=== PATIENT | female | born 1940 | race Caucasian/White ===

== ENCOUNTER 2016-12-10 17:21 | Observation (INO) | payer MEDICARE, OTHER ==
[~2016-12-10] VITALS: Ht 167.6 cm; Wt 83.5 kg
[2016-12-10] VITALS (7 sets, daily range): BP systolic 119–152; BP diastolic 62–77; PULSE 71–97; RESP 16–20; O2SAT 94–98
--- NOTE | 2016-12-10 17:38 | ED.REPORT ---
HPI-Stroke / CVA Dec 10, 2016 ED Provider: Marin Torres MD The patient is a 76 year old female with a history of hypertension and hyperlipidemia who presents to the ED with stoke-like symptoms that began at 1600 this afternoon. She states that just 2 hours prior to arrival her left arm started feeling like it was "not her own" she states that her left arm feels different that she has not had any actual weakness. She was getting groceries during symptoms onset. Patient states that her arm "does not feel like her own". 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 Last known normal was just prior to 1600 at ~1559. She denies facial droop, slurred speech , difficulty ambulating, dizziness, dysuria, hematuria, nausea, vomiting, fever or chills. Patient currently takes one aspirin per day. She is not on any blood thinners. She has never had a stroke or TIA. She has not fallen or struck her head. Nursing Notes Stated Complaint: POSSIBLE STROKE SYMPTOMS Chief Complaint: Neuro Symptoms/ Deficits Nursing Notes Reviewed: Yes Allergies: Coded Allergies: No Known Allergies (Unverified , 12/10/16) Scheduled Aspirin (Aspirin) 81 Mg Tablet 81 MG PO DAILY (Reported) Cholecalciferol (Vitamin D3) (Vitamin D3) 2,000 Unit Tablet 2,000 UNIT PO DAILY (Reported) Lisinopril (Lisinopril) 20 Mg Tablet 20 MG PO QAM (Reported) Lovastatin (Lovastatin) 20 Mg Tablet 20 MG PO HS (Reported) Lutein/Zeaxanthin (Lutein-Zeaxanthin 25-5 mg Sfgl) 1 Each Capsule 1 EACH PO DAILY (Reported) Multivitamin (Once Daily) 1 Each Tablet 1 EACH PO DAILY (Reported) General Time Seen by Provider: 18:01 Chief Complaint Weakness Arm left Hx Obtained From: Patient Arrived By: Walk-in Time last known well 1559 Sudden in Onset?: Yes Symptom Duration: Since onset Progression Since Onset: Constant Associated with: Denies: Speech problem, Visual disturbance Pertinent Negative: Pt denies other symptoms Recent Healthcare: No recent doctor visit, No recent hospitalization Risk Factors )( TPA Administration/Criteria Stroke Thrombolytic Therapy : TPA Considered: Yes TPA Administered Intravenously: No, exclusion criteria NIH Stroke Scale Level of Consciousness: Alert and responsive (0) Ask Month & Age: Both questions right (0) Open/Close Eyes/Hand Travel Med Surg Rn: Performs both tasks (0) Horizontal EO Movements: None (0) Visual Rothman: No visual loss (0) Facial Palsy: Normal symmetry (0) Right Arm Motor Drift (10s): No drift 10 sec (0) Left Arm Motor Drift (10s): No drift 10 sec (0) Right Leg Motor Drift (5s): No drift 5 sec (0) Left Leg Motor Drift (5s): No drift 5 sec (0) Limb Ataxia FNF/Heel-Moseley: No ataxia (0) Sensation (Arms/Legs/Face): No sensory loss (0) Language Aphasia: No aphasia, normal (0) Dysarthria: No dysarthria, normal (0) Extinction/Inattention: No exctinct/inattent (0) NIHSS Score: 0 Time NIHSS Performed: 18:01 )( CVA Risk Stratification Risk factors reviewed Past Medical History Past Medical History Reports: Hyperlipidemia, Hypertension Past Surgical History Foot surgery Smoking History Unknown if Ever Smoker Social History Other Social History: Good social support, , Local resident Ambulatory Status Independent Review of Systems Constitutional: Denies: Chills, Fever GI: Denies: Nausea, Vomiting Neurologic: Reports: Focal weakness (Left arm), Numbness, Denies: Dizziness, Problem walking, Slurred speech, Unable to speak, Vision change Complete sys rev & neg: except as marked. Female: Denies: Dysuria, Hematuria Physical Exam Initial Vital Signs Vital Signs (First) Date Time Temp Pulse Resp B/P Pulse Ox O2 Delivery O2 Flow Rate FiO2 12/10/16 17:26 36.8 97 16 152/77 98 Room Air Initial VS: Reviewed Extremities: Vascular intact, Neuro intact, No swelling, No tenderness Skin: Warm, Dry, No cyanosis Psychiatric: Mood/affect normal, Behavior normal, Normal thought content General/Constitutional: Awake, Alert, No acute distress Head / Eyes: Atraumatic, Normocephalic, PERRL Neck: Atraumatic, Supple, Full range of motion Respiratory / Chest: Atraumatic, Breath sounds NL, Breath sounds = bilat, No respiratory distress Cardiovascular: Heart rate NL, Regular rhythm, Heart sounds NL, No gallop, No murmurs, No rubs, Peripheral circulation NL, Pulses = bilaterally Neurologic: Oriented X3, Speech NL, No motor deficits, No sensory deficits, CN II - XII intact, Reflexes equal bilat, Memory NL, Gait NL (Normal gait) Cerebellar Dysfunction: Positive: Finger-nose abnl (Slow - no dysmetria), Negative: Heel-moseley abnl No facial droop Strength and sensation intact in all four extremities No prontator drift Strength with elbow flxion (5/5) All four extremities (5/5 strength) Negative Rhomberg Abdomen: Atraumatic, Soft, Non-tender, No distention Interpretation & Diagnostics Lab Results Interpretation Result Diagram: 12/10/16 1806 12/10/16 1806 Test 12/10/16 17:56 12/10/16 18:06 12/10/16 18:07 Urine Color Yellow (YELLOW) Urine Appearance Clear (CLEAR,HAZY) Urine pH 6.0 (5.0-8.0) Urine Specific [place] 1.010 (1.003-1.035) Urine Protein Negativemg/dL (NEG,TRACE) Urine Glucose (UA) Negativemg/dL (NEGATIVE) Urine Ketones Negativemg/dL (NEGATIVE) Urine Occult Blood Trace (NEGATIVE) Urine Nitrite Negative (NEGATIVE) Urine Bilirubin Negative (NEGATIVE) Urine Urobilinogen Normalmg/dL (NORMAL) Urine Leukocyte Esterase Trace (NEGATIVE) Urine RBC 3-10/hpf (0-2) Urine WBC 0-5/hpf (0-5) Urine Epithelial Cells Moderate/hpf (NONE-MOD) Urine Crystals None seen (NONE SEEN) Urine Bacteria Few/hpf (NONE-FEW) Urine Hyaline Casts None/lpf (NONE) Urine Granular Casts None seen (NONE SEEN) Urine Waxy Casts None seen (NONE SEEN) Urine Red Blood Cell Casts None seen (NONE SEEN) Urine White Blood Cell Casts None seen (NONE SEEN) Urine Mucus None seen (None Seen) Urine Trichomonas None seen (NONE SEEN) Urine Yeast None (NONE SEEN) Urinalysis Comment None Urine Culture Reflexed Indicated White Blood Count 8.0th/mm3 (3.8-10.1) Red Blood Count 3.87mil/mm3 (3.90-5.20) Hemoglobin 12.3g/dL (12.0-15.6) Hematocrit 35.5% (35.0-46.0) Mean Corpuscular Volume 91.7fL (81-100) Mean Corpuscular Hemoglobin 31.8pg (27.0-35.0) Mean Corpuscular Hemoglobin Concent 34.6% (32.0-37.0) Red Cell Distribution Width 13.7% (12.3-15.4) Platelet Count 62bil/L (150-400) Neutrophils (%) (Auto) 62.1% (40-74) Lymphocytes (%) (Auto) 27.7% (14-46) Monocytes (%) (Auto) 8.0% (4-12) Eosinophils (%) (Auto) 1.5% (0-5) Basophils (%) (Auto) 0.4% (0-3) Prothrombin Time 10.0sec (8.1-12.5) Prothromb Time International Ratio 0.94ratio Activated Partial Thromboplast Time 28.9sec (22.8-33.0) Sodium Level 138mEq/L (134-144) Potassium Level 3.6mEq/L (3.5-5.2) Chloride Level 101mEq/L (97-108) Carbon Dioxide Level 21mmol/L (18-29) Blood Urea Nitrogen 27mg/dL (8-27) Creatinine 0.95mg/dL (0.57-1.00) Estimat Glomerular Filtration Rate 81mL/min (>59) Glucose Level 107mg/dL (60-99) Calcium Level 9.2mg/dL (8.5-10.1) Total Bilirubin 0.8mg/dL (0.0-1.2) Aspartate Amino Transf (AST/SGOT) 36U/L (0-50) Alanine Aminotransferase (ALT/SGPT) 25U/L (0-32) Alkaline Phosphatase 69U/L (25-165) Troponin T < 0.010ug/L (0.0-0.011) Total Protein 7.6g/dL (6.4-8.4) Albumin 4.1g/dL (3.4-5.0) Triglycerides Level 214mg/dL (0-149) Cholesterol Level 208mg/dL (100-199) LDL Cholesterol, Calculated 117.200mg/dL (0-99) VLDL Cholesterol 42.800mg/dL HDL Cholesterol 48mg/dL (>39) Cholesterol/HDL Ratio 4.33 (0.0-4.4) Thyroid Stimulating Hormone (TSH) 4.000uIU/mL (0.450-4.500) Hold Martínez Top Tube Received (Received) ECG Interpretation ECG Interpretation: Normal sinus rhythm Rate 73 bpm Nonspecific intraventricular conduction delay No ST segment elevation No acute T wave abnormalities No prior for comparison Time: 18:57 Interpreted by: ED physician CT Head Interpretation IMPRESSION: 1. No acute intracranial findings. 2. Extensive findings likely associated with chronic microvascular ischemic changes. This study fulfills neurological imaging criteria for inclusion or exclusion of acute stroke therapies based on available published neurological guidelines. Dictated by: Inge Escobar M.D. on 12/10/2016 at 17:51 Study: Head CT no contrast Interpretation / Wet Read by: Interpret - Radiologist Re-Eval/Medical Decision Med Decision/Clinical Course The patient is a 76 year old female with a history of hypertension and hyperlipidemia who presents to the ED with stoke-like symptoms that began at 1600 this afternoon. She states that just 2 hours prior to arrival her left arm started feeling like it was "not her own" she states that her left arm feels different that she has not had any actual weakness. Here in the emergency department the patient is afebrile with stable vital signs and examination as above. Of note she has absolutely no objective neurologic deficits or lateralizing neurologic findings. She has no pronator drift. She has no sensory deficits. She has no motor deficits. Gait is normal , Romberg testing is normal, heel to moseley and finger to nose testing is normal. She continues ongoing sensation of "left arm not being her own" however there are absolutely no objective findings of neurologic deficit. I had a discussion about the risks and benefits of TPA with the patient and we do not feel that administration of TPA is warranted given her extremely mild presentation. Head CT IMPRESSION: 1. No acute intracranial findings. 2. Extensive findings likely associated with chronic microvascular ischemic changes. This study fulfills neurological imaging criteria for inclusion or exclusion of acute stroke therapies based on available published neurological guidelines. EKG Normal sinus rhythm Rate 73 bpm Nonspecific intraventricular conduction delay No ST segment elevation No acute T wave abnormalities No prior for comparison LABS Plt Ct - 62; CBC otherwise unremarkable CMP unremarkable Coag normal UA unconvincing for UTI At this time, presentation unconvincing for acute ischemic stroke though this remains a possibility. No evidence of intracranial hemorrhage. Patient is afebrile without any meningismus and no findings suggestive of acute bacterial or viral meningitis. Patient underwent serial neurologic assessments which demonstrated no evolving neurologic deficits. Patient is noted to be quite orthostatic.This likely requires further workup. Patient will be admitted to the hospitalist service for further stroke/TIA workup as well as investigation of her thrombocytopenia. Patient was admitted in stable condition. Discussed with admitting hospitalist accepted for further management. Re-Evaluation/Progress : Time of Eval: 18:20 Patient Status: Condition improved Re-Evaluation/Progress Note: Patient condition is re-evaluated. She is informed of her current and pending results. All questions about the intended treatment plan are addressed. Patient understands and agrees with the plan to admit. Consultation : Referral / Consult Name: Jovani Alexander MD Call Returned at: 19:13 Internal Audit Consultant: Will see patient, Agrees with eval, Agrees with plan, Accepts admit Note: Discussed pt condition. Will admit. Counseled Regarding: Diagnosis, Lab results, Need for admission Patient Discharge & Departure Impression: Primary Impression: TIA (transient ischemic attack) Transient cerebral ischemia type: unspecified Qualified Code: G45.9 - Transient cerebral ischemic attack, unspecified Additional Impressions: Thrombocytopenia Left upper extremity numbness Disposition: ADMITTED TO HOSPITAL Discharge Condition All VS Reviewed: Yes Condition: Improved Referrals: Kyung Carlos MD Scribe Attestation Portions of this note were transcribed by Sheila Cage. I, Dr. Torres, personally performed the history, physical exam and medical decision-making; I reviewed and confirmed the accuracy of the information in the transcribed note. Signed by: Sheila Cage, 12/10/16. Marin Torres MD Dec 10, 2016 17:38 SHEILA CAGE Dec 10, 2016 18:11
--- NOTE | 2016-12-10 17:55 | DRSVH ---
PROCEDURE: CT BRAIN TPA INDICATIONS: Stroke TECHNIQUE: Noncontrast 4.5 mm thick angled axial sections acquired from the foramen magnum to the vertex, with c oronal reformats. COMPARISON: None. FINDINGS: Image quality: Excellent. CSF spaces: Basal cisterns are patent. No extra-axial fluid collections. The ventricles are symmet keeley in size and shape. Brain: No intracranial bleeds or masses. There is marked cerebral volume loss for age, with resulta nt ventricular and sulcal prominence. There are extensive periventricular and deep white matter synchronizer edgard small vessel ischemic changes. There is intracranial internal carotid artery atherosclerosis. Skull and face: Calvarium and visualized facial bones appear intact, without suspicious lesions. Sinuses: Visualized sinuses and mastoids are clear. IMPRESSION: 1. No acute intracranial findings. 2. Extensive findings likely associated with chronic microvascular ischemic changes. This study fulfills neurological imaging criteria for inclusion or exclusion of acute stroke therapie s based on available published neurological guidelines. Dictated by: Inge Escobar M.D. on 12/10/2016 at 17:51 Approved by: Inge Escobar M.D. on 12/10/2016 at 17:54
[2016-12-10 18:11] LABS: Mean Corpuscular Volume 91.7 fL (81-100)
[2016-12-10 18:15] LABS: BASOPHILS % (AUTO) 0.4 % (0-3); EOSINOPHILS % (AUTO) 1.5 % (0-5); Mean Corpuscular Hemoglobin 31.8 pg (27.0-35.0); NEUTROPHILS % (AUTO) 62.1 % (40-74); Platelet Count 62 bil/L (150-400)
[2016-12-10 18:19] LABS: APPEARANCE,URINE CLEAR (CLEAR,HAZY); COLOR,URINE YELLOW (YELLOW); OCCULT BLOOD,URINE TRACE (NEGATIVE); UROBILINOGEN,URINE NORMAL (NORMAL)
[2016-12-10] MEDS ORDERED: Alum-Mag Hydrox-Simeth 30 mL Suspension PO PRN ×2 (18:25→19:35)
[2016-12-10] MEDS ORDERED: Ondansetron 2 mg/mL 2 mL Inj IVPUSH PRN ×2 (18:25→19:35)
[2016-12-10 18:28] LABS: INR 0.94 ratio
[2016-12-10 18:37] LABS: TROPONIN T < 0.010 ug/L (0.0-0.011)
[2016-12-10] MEDS ORDERED: Labetalol 5 mg/mL 20 mL Inj IVPUSH PRN (19:35)
[2016-12-10] MEDS ORDERED: hydrALAZINE 20 mg/mL Inj IVPUSH PRN (19:35)
[2016-12-10] MEDS ORDERED: Polyethylene Glycol (PEG) 17 Gm Powder PO PRN (19:35)
[2016-12-10] MEDS ORDERED: CHOL200025 PO (19:49)
[2016-12-10] MEDS ORDERED: ASPI-973 PO (19:49)
[2016-12-10] MEDS ORDERED: LOVA20TA PO (19:49)
[2016-12-10] MEDS ORDERED: MULT-666 PO (19:49)
[2016-12-10] MEDS ORDERED: LISI-567 PO (19:49)
[2016-12-10] MEDS ORDERED: LUTE1CAP4 PO (19:50)
--- NOTE | 2016-12-10 20:30 | NUR ---
Admit Note Pt. arrived on floor at 2014. Pt. alert and oriented x3. Pt's peripheral IV intact and patent. Family in room. Oriented to room. Will continue to monitor.
--- NOTE | 2016-12-10 20:45 | NUR ---
Off floor to MRI Off floor to MRI at 2030. Transported via tech via wheelchair. Addendum: 12/10/16 at 2213 by ALLISON AVALOS RN The time the pt. left the floor was 2129 not 2029.
--- NOTE | 2016-12-10 21:58 | PCM.HPMED ---
Subjective Date of Service Dec 10, 2016 Primary Provider: Admitting Physician: Jovani Alexander MD Primary Care Physician: Kathrine Raman Attending Physician: Jovani Alexander MD Admit Status: From the Emergency Department Chief Complaint: Left arm weakness/numbness History of Present Illness: Ms. Guillaume is a 76-year-old female with past medical history of hypertension and hyperlipidemia who presented to the ED from home with strokelike symptoms onset 1600 hrs. today. Patient states that she was getting out of her vehicle today when she felt a left shoulder left arm weakness/numbness with a "out of body" feeling. She states as if she was not in control of her arm while able to control her movements. She does not state any other symptoms such as facial numbness, slurred speech, lower extremity numbness or tingling. She states 10 days prior she had a similar episode while walking her dog when she felt as if her left arm was not in her control. Admittedly she has a difficult time describing these feelings "like somebody is touching my face when I am touching my face as if my hand belongs to someone else". She states 5 years prior she underwent a right ankle surgery which she believes has caused her musculoskeletal dysfunction and believes her current symptoms may be due to a pinched nerve in her neck. During interview patient is asymptomatic and denies headache, visual disturbances, nausea vomiting, chest pain, shortness breath, abdominal pain, numbness tingling in extremities or weakness in the extremity. In the ED brain CT showed no acute intracranial findings, extensive findings likely associated with chronic microvascular ischemic changes. Patient admitted for TIA versus stroke rule out Review of Systems: A comprehensive review of systems was conducted with the patient and found to be negative except as above in the history of present illness. Allergies Coded Allergies: No Known Allergies (Unverified , 12/10/16) Home Medications Need to be consolidated in the morning PMH Hypertension Hyperlipidemia Surgical History Right ankle surgery 2011 Family History Grandfather: Stroke Father: Heart attack Mother: Hypothyroid Grandmother: Hypothyroid Social History Hx Alcohol Use: No Hx Substance Use: No Hx Tobacco Use: No Living Arrangement: with Family Exam Vital Signs Vital Sign - Last Date Time Temp Pulse Resp B/P Pulse Ox O2 Delivery O2 Flow Rate FiO2 12/10/16 20:18 74 20 139/66 96 Room Air 12/10/16 17:26 36.8 Exam General: Awake alert lying in hospital bed in no acute distress, well-developed , well-nourished, appropriately interactive HEENT: Normocephalic, atraumatic. External ears without defect. Pupils equal, round, and reactive to light and accommodation. Anicteric sclerae, moist conjunctivae, and no lid lag. Oropharynx free of erythema and cobble stoning with moist mucosa. Neck: Supple with full range of motion. No jugular venous distension. No bruits. No lymphadenopathy or thyromegaly. Cardiovascular: Regular rate and rhythm with no murmurs, rubs, or gallops appreciated Pulmonary: Clear to auscultation bilaterally with no crackles, wheezes, or rhonchi. Normal respiratory effort with no use of accessory muscles. Abdomen: Bowel tones present. Soft, nontender, nondistended. Extremities: No clubbing, cyanosis, bilateral lower extremity edema Skin: Normal temperature, turgor, and texture; no rash Neurological: Cranial nerves grossly intact. Normal muscle strength, tone, and bulk. Reflexes, coordination, and sensory function within normal limits. No known gait impairment. Psychiatric: Normal mood and affect. Alert and oriented to person, place, and time. Lab and Diagnostics Result Diagram: 12/10/16180512/10/161805 X-Rays, CTs and MRIs . CT BRAIN TPA IMPRESSION: 1. No acute intracranial findings. 2. Extensive findings likely associated with chronic microvascular ischemic changes. This study fulfills neurological imaging criteria for inclusion or exclusion of acute stroke therapies based on available published neurological guidelines. Dictated by: Inge Escobar M.D. on 12/10/2016 12-lead ECG EKG showed sinus rhythm, LVH with IVCD, LAD and secondary repolarization abnormalities Additional Diagnostics: Level of Consciousness: Alert and responsive (0) Ask Month & Age: Both questions right (0) Open/Close Eyes/Hand Communication Lecturer: Performs both tasks (0) Horizontal EO Movements: None (0) Visual Rothman: No visual loss (0) Facial Palsy: Normal symmetry (0) Right Arm Motor Drift (10s): No drift 10 sec (0) Left Arm Motor Drift (10s): No drift 10 sec (0) Right Leg Motor Drift (5s): No drift 5 sec (0) Left Leg Motor Drift (5s): No drift 5 sec (0) Limb Ataxia FNF/Heel-Moseley: No ataxia (0) Sensation (Arms/Legs/Face): No sensory loss (0) Language Aphasia: No aphasia, normal (0) Dysarthria: No dysarthria, normal (0) Extinction/Inattention: No exctinct/inattent (0) NIHSS Score: 0 Assessment & Plan Ms. Guillaume is a 76-year-old female with past medical history of hypertension and hyperlipidemia, admitted for CVA/TIA rule out Possible transient ischemic attack. Not present on admission. Under evaluation ABCD score for TIA gives Pt a 3.1% risk for CVA in next 90 days Lipid panel shows mixed hyperlipidemia CT as above MR stroke protocol ordered and pending Echo ordered and pending Telemetry Continue to monitor Hyperlipidemia. POA. Ongoing Continue home lovastatin Hypertension. POA. Ongoing Continue home lisinopril Patient status: Patient admitted under observational status GI Prophylaxis: H2 annie VTE Prophylaxis: Sub-Q Heparin (Unfractionated) Resuscitation Status: CPR: Attempt Resuscitation Attending Statement The patient was seen and examined together with Dr. Barron on 12/10 and I agree with the history, exam and plan as outlined in the note above. NANETTE BARRON DO Dec 10, 2016 21:58 Jovani Alexander MD Dec 10, 2016 23:29
--- NOTE | 2016-12-10 22:56 | NUR ---
Back on floor from MRI Back on [facility] floor from MRI now.
[2016-12-11 04:55] VITALS: BP 116/68; PULSE 66; RESP 16; O2SAT 97
[2016-12-11 07:14] LABS: BASOPHILS % (AUTO) 0.2 % (0-3); EOSINOPHILS % (AUTO) 2.3 % (0-5); MONOCYTES % (AUTO) 10.8 % (4-12); Mean Corpuscular Hemoglobin 31.6 pg (27.0-35.0); Mean Corpuscular Volume 92.4 fL (81-100); NEUTROPHILS % (AUTO) 45.9 % (40-74); Platelet Count 51 bil/L (150-400)
[2016-12-11] MEDS ORDERED: Heparin 5,000 Unit/mL Inj SUBQ SCH (08:30)
--- NOTE | 2016-12-11 09:28 | NUR ---
Evaluation completed. Please go to "Notes" then click on "Assessments and Notes" (bottom left corner of screen). Then select appropriate discipline tab on top of screen.
[2016-12-11 09:50] VITALS: BP 130/75; PULSE 79; RESP 20; O2SAT 97
[2016-12-11 09:54] VITALS: PULSE 71
--- NOTE | 2016-12-11 11:29 | NUR ---
Case Management: RICARDO and Medicare Part D delivered and explained to patient. Signed original placed in chart. Copy left at bedside. Erma Hamilton RN
--- NOTE | 2016-12-11 11:49 | DRSVH ---
PROCEDURE: MRI STROKE PROTOCOL ([id number]) Pre- and post-contrast brain MRI, non-contrast brain MR angiogram, pre- and postcontrast neck MR ibeth ogram INDICATIONS: TIA TECHNIQUE: Brain: Noncontrast axial T1 spin echo, axial T2 fast spin echo, sagittal and axial FLAIR, coronal T2 fast spin echo, axial gradient echo, axial diffusion and ADC through the brain. After the administr ation of contrast, axial 3D VIBE of the cranial vasculature and brain. Brain MRA: Non-contrast 3-D time of flight MR angiogram, with multiple yvdpvbd-sdjgoewmj-ljdiltfwph (MIP) reformats performed. Neck MRA: Axial and sagittal TruFISP through the neck. Coronal dynamic MR angiogram during administ ration of contrast in the arterial and venous phases, with 3-dimenstional ctxanyc-letaxyeiw-spzvacvwl n (MIP) reformats constructed from subtraction images. COMPARISON: [facility], CT, CT BRAIN TPA, 12/10/2016, 17:45. FINDINGS: Image quality: Excellent. BRAIN: The ventricular system and cortical sulci demonstrate atrophy, consistent for the patient's stated ag e. There are areas of increased T2/FLAIR signal intensity within the periventricular and subcortical white matter. There is no acute intra-or extra axial fluid collection. No acute hemorrhage, mass les ion or midline shift. Brainstem is unremarkable. Restricted diffusion is present in the posterior right frontal lobe. In addition, a punctate focus of restricted diffusion is present in the right occipital lobe. T2/FLAIR signal intensity. In addition, there is a very faint area of increased signal on diffusion sequence in the anterior left frontal lo be. There is an equivocal appearance of hypointensity on ADC and hyperintense signal on T2/FLAIR sequ ences. In addition, post contrast enhancement is present. Globes are symmetrical. Sinuses are aerated. Osseous structures are intact. BRAIN MR ANGIOGRAM: The posterior circulation demonstrates a left vertebral artery dominance. Basilar artery and posterio r cerebral arteries demonstrate no areas of hemodynamically significant stenosis, vascular occlusion or aneurysmal dilation. Posterior communicating arteries are within normal limits. 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 The anterior circulation, including the anterior and middle cerebral arteries, as well as internal ca rotid arteries demonstrates no areas of hemodynamically significant stenosis, vascular occlusion or a neurysmal dilation. NECK MR ANGIOGRAM: The origins of the left and right common, internal and external carotid arteries demonstrate no areas of hemodynamically significant stenosis, vascular occlusion or aneurysmal dilation. Origin of the ri ght vertebral artery is obscured secondary to motion. The origin of the left vertebral artery demonst rates no areas of hemodynamically significant stenosis, vascular occlusion or aneurysmal dilation. Ao rtic arch demonstrates conventional anatomy. Limited, visualized portions subclavian vasculature are unremarkable. IMPRESSION: 1. Restricted diffusion with relative signal on ADC, T2 and FLAIR sequence is consistent with acute/s ubacute ischemia in the right frontal and right occipital lobes. No superimposed hemorrhage. 2. Faint area of focal true restricted diffusion and contrast enhancement within the left frontal lob e as above. Overall appearance is most suggestive of late subacute ischemia. 3. Mild to moderate atrophy and chronic microvascular ischemic changes. 4. No areas of hemodynamically significant stenosis, vascular occlusion or aneurysmal dilation within the anterior circulation. 5. No areas of hemodynamically significant stenosis, vascular occlusion or aneurysmal dilation within the posterior circulation. 6. No areas of hemodynamically significant stenosis, vascular occlusion or aneurysmal dilation within the neck vasculature. Origin of the right vertebral artery is unable to be assessed for stenosis sec ondary to motion. The estimate of stenosis included in the report of the imaging study was calculated using the NASCET method Dictated by: Taisha England M.D. on 12/11/2016 at 9:14 Approved by: Taisha England M.D. on 12/11/2016 at 11:47
--- NOTE | 2016-12-11 12:54 | NUR ---
Social Work: Initial Assessment/Readiness for D/C/Multidisciplinary Rounds D: EMR reviewed. Please see Initial Assessment linked to this note for more information. Pt is a 76 year old female admitted [facility] for TIA per H&P. Pt's insurance is Medicare and [email or web address]. PCP is Kathrine Raman MD. Pt discussed in multidisciplinary rounds, ST, PT, OT to evaluate pt. ST has seen pt, recommending regular solids. Pt is likely to discharge home, no needs. No SW orders received. SW met with pt at bedside to conduct initial assessment. Pt was alert and oriented x3. SW explained role and wrote phone number on white board. SW provided [facility] Discharge Planning Checklist and encouraged pt to contact SW for any discharge planning questions. Pt lives at home with her spouse on [address]. Pt is independent with all ADLs at baseline. Pt uses no DME at baseline, but has a walker available for use at discharge. Pt drives. Pt has no HH or SNF history. Pt has no LTC or VA benefits. Pt has no DPOA on file, SW requested copy of pt's DPOA. Pt agreeable. Pt helps her sister in [place] on Sundays but is not a primary caregiver. Pt's daughter lives in a guest house near pt's home and is able to assist as needed. Pt's is independent at baseline and was later seen independently ambulating down alonso to visit pt at bedside. Pt is likely to d/c home with to transport via POV. SW will continue to follow. A: Pt who is independent at baseline and has the capacity for self-care. P: Pt anticipated to discharge home with to transport via POV. No SW needs identified, no MD orders received at this time. PT and OT to evaluate pt. SW will continue to follow for needs until time of discharge. DAVID Jo Addendum: 12/11/16 at 1256 by MIGUELITO POWELL Amended: Links added.
--- NOTE | 2016-12-11 13:13 | PCM.PNMED ---
Subjective Date of Service Dec 11, 2016 Subjective The patient does note still some clumsiness of her left arm and difficulty coordinating it with the right. Exam Vital Signs Vital Sign - Last Date Time Temp Pulse Resp B/P Pulse Ox O2 Delivery O2 Flow Rate FiO2 12/11/16 09:54 71 12/11/16 09:50 36.4 20 130/75 97 Room Air Intake and Output 12/10/16 12/10/16 12/11/16 Cumulative From/Thru 15:00 23:00 07:00 12/10/16 17:26 - 12/11/16 05:48 Intake Total 1250 ml 1250 ml Output Total 950 ml 950 ml Balance 300 ml 300 ml Intake Oral 1250 ml 1250 ml Output Urine Total 950 ml 950 ml # Bowel Movements 0 0 Exam Constitutional: Elderly female in no acute distress Head: Normocephalic atraumatic Chest: Clear to auscultation Cor: Regular rate and rhythm S1-S2 without murmur Abdomen: Soft nontender bowel sounds present Extremities: No pedal edema Neuro: Alert and oriented 3 motor strength is intact bilaterally IVs and Medications Medications Reviewed: Medications were reviewed in detail Lab and Diagnostics Laboratory Tests 72 Hours Test 12/10/16 17:56 12/10/16 18:06 12/10/16 18:07 12/11/16 06:00 Urine Color Yellow (YELLOW) Urine Appearance Clear (CLEAR,HAZY) Urine pH 6.0 (5.0-8.0) Urine Specific [place] 1.010 (1.003-1.035) Urine Protein Negativemg/dL (NEG,TRACE) Urine Glucose (UA) Negativemg/dL (NEGATIVE) Urine Ketones Negativemg/dL (NEGATIVE) Urine Occult Blood Trace (NEGATIVE) Urine Nitrite Negative (NEGATIVE) Urine Bilirubin Negative (NEGATIVE) Urine Urobilinogen Normalmg/dL (NORMAL) Urine Leukocyte Esterase Trace (NEGATIVE) Urine RBC 3-10/hpf (0-2) Urine WBC 0-5/hpf (0-5) Urine Epithelial Cells Moderate/hpf (NONE-MOD) Urine Crystals None seen (NONE SEEN) Urine Bacteria Few/hpf (NONE-FEW) Urine Hyaline Casts None/lpf (NONE) Urine Granular Casts None seen (NONE SEEN) Urine Waxy Casts None seen (NONE SEEN) Urine Red Blood Cell Casts None seen (NONE SEEN) Urine White Blood Cell Casts None seen (NONE SEEN) Urine Mucus None seen (None Seen) Urine Trichomonas None seen (NONE SEEN) Urine Yeast None (NONE SEEN) Urinalysis Comment None Urine Culture Reflexed Indicated White Blood Count 8.0th/mm3 (3.8-10.1) 5.7th/mm3 (3.8-10.1) Red Blood Count 3.87mil/mm3 (3.90-5.20) 3.29mil/mm3 (3.90-5.20) Hemoglobin 12.3g/dL (12.0-15.6) 10.4g/dL (12.0-15.6) Hematocrit 35.5% (35.0-46.0) 30.4% (35.0-46.0) Mean Corpuscular Volume 91.7fL (81-100) 92.4fL (81-100) Mean Corpuscular Hemoglobin 31.8pg (27.0-35.0) 31.6pg (27.0-35.0) Mean Corpuscular Hemoglobin Concent 34.6% (32.0-37.0) 34.2% (32.0-37.0) Red Cell Distribution Width 13.7% (12.3-15.4) 13.7% (12.3-15.4) Platelet Count 62bil/L (150-400) 51bil/L (150-400) Neutrophils (%) (Auto) 62.1% (40-74) 45.9% (40-74) Lymphocytes (%) (Auto) 27.7% (14-46) 40.6% (14-46) Monocytes (%) (Auto) 8.0% (4-12) 10.8% (4-12) Eosinophils (%) (Auto) 1.5% (0-5) 2.3% (0-5) Basophils (%) (Auto) 0.4% (0-3) 0.2% (0-3) Prothrombin Time 10.0sec (8.1-12.5) Prothromb Time International Ratio 0.94ratio Activated Partial Thromboplast Time 28.9sec (22.8-33.0) Sodium Level 138mEq/L (134-144) 141mEq/L (134-144) Potassium Level 3.6mEq/L (3.5-5.2) 3.4mEq/L (3.5-5.2) Chloride Level 101mEq/L (97-108) 105mEq/L (97-108) Carbon Dioxide Level 21mmol/L (18-29) 22mmol/L (18-29) Blood Urea Nitrogen 27mg/dL (8-27) 20mg/dL (8-27) Creatinine 0.95mg/dL (0.57-1.00) 0.76mg/dL (0.57-1.00) Estimat Glomerular Filtration Rate 81mL/min (>59) 105mL/min (>59) Glucose Level 107mg/dL (60-99) 94mg/dL (60-99) Hemoglobin A1c 5.5% (4.8-5.6) Calcium Level 9.2mg/dL (8.5-10.1) 8.4mg/dL (8.5-10.1) Total Bilirubin 0.8mg/dL (0.0-1.2) 0.7mg/dL (0.0-1.2) Aspartate Amino Transf (AST/SGOT) 36U/L (0-50) 25U/L (0-50) Alanine Aminotransferase (ALT/SGPT) 25U/L (0-32) 18U/L (0-32) Alkaline Phosphatase 69U/L (25-165) 57U/L (25-165) Troponin T < 0.010ug/L (0.0-0.011) Total Protein 7.6g/dL (6.4-8.4) 6.1g/dL (6.4-8.4) Albumin 4.1g/dL (3.4-5.0) 3.4g/dL (3.4-5.0) Triglycerides Level 214mg/dL (0-149) Cholesterol Level 208mg/dL (100-199) LDL Cholesterol, Calculated 117.200mg/dL (0-99) VLDL Cholesterol 42.800mg/dL HDL Cholesterol 48mg/dL (>39) Cholesterol/HDL Ratio 4.33 (0.0-4.4) Thyroid Stimulating Hormone (TSH) 4.000uIU/mL (0.450-4.500) Hold Martínez Top Tube Received (Received) Result Diagram: 12/11/16 0600 12/11/16 0600 X-Rays, CTs and MRIs . CT BRAIN TPA IMPRESSION: 1. No acute intracranial findings. 2. Extensive findings likely associated with chronic microvascular ischemic changes. This study fulfills neurological imaging criteria for inclusion or exclusion of acute stroke therapies based on available published neurological guidelines. Dictated by: Inge Escobar M.D. on 12/10/2016 PROCEDURE: MRI STROKE PROTOCOL ([id number]) Pre- and post-contrast brain MRI, non-contrast brain MR angiogram, pre- and postcontrast neck MR angiogram INDICATIONS: TIA TECHNIQUE: Brain: Noncontrast axial T1 spin echo, axial T2 fast spin echo, sagittal and axial FLAIR, coronal T2 fast spin echo, axial gradient echo, axial diffusion and ADC through the brain. After the administration of contrast, axial 3D VIBE of the cranial vasculature and brain. Brain MRA: Non-contrast 3-D time of flight MR angiogram, with multiple maximum- intensity-projection (MIP) reformats performed. Neck MRA: Axial and sagittal TruFISP through the neck. Coronal dynamic MR angiogram during administration of contrast in the arterial and venous phases, with 3-dimenstional iynbnzu-mloxougjx-nogdkqlhyk (MIP) reformats constructed from subtraction images. COMPARISON: [facility], CT, CT BRAIN TPA, 12/10/2016, 17:45. FINDINGS: Image quality: Excellent. BRAIN: The ventricular system and cortical sulci demonstrate atrophy, consistent for the patient's stated age. There are areas of increased T2/FLAIR signal intensity within the periventricular and subcortical white matter. There is no acute intra-or extra axial fluid collection. No acute hemorrhage, mass lesion or midline shift. Brainstem is unremarkable. Restricted diffusion is present in the posterior right frontal lobe. In addition , a punctate focus of restricted diffusion is present in the right occipital lobe. T2/FLAIR signal intensity. In addition, there is a very faint area of increased signal on diffusion sequence in the anterior left frontal lobe. There is an equivocal appearance of hypointensity on ADC and hyperintense signal on T2 /FLAIR sequences. In addition, post contrast enhancement is present. Globes are symmetrical. Sinuses are aerated. Osseous structures are intact. BRAIN MR ANGIOGRAM: The posterior circulation demonstrates a left vertebral artery dominance. Basilar artery and posterior cerebral arteries demonstrate no areas of hemodynamically significant stenosis, vascular occlusion or aneurysmal dilation. Posterior communicating arteries are within normal limits. 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 The anterior circulation, including the anterior and middle cerebral arteries, as well as internal carotid arteries demonstrates no areas of hemodynamically significant stenosis, vascular occlusion or aneurysmal dilation. NECK MR ANGIOGRAM: The origins of the left and right common, internal and external carotid arteries demonstrate no areas of hemodynamically significant stenosis, vascular occlusion or aneurysmal dilation. Origin of the right vertebral artery is obscured secondary to motion. The origin of the left vertebral artery demonstrates no areas of hemodynamically significant stenosis, vascular occlusion or aneurysmal dilation. Aortic arch demonstrates conventional anatomy. Limited, visualized portions subclavian vasculature are unremarkable. IMPRESSION: 1. Restricted diffusion with relative signal on ADC, T2 and FLAIR sequence is consistent with acute/subacute ischemia in the right frontal and right occipital lobes. No superimposed hemorrhage. 2. Faint area of focal true restricted diffusion and contrast enhancement within the left frontal lobe as above. Overall appearance is most suggestive of late subacute ischemia. 3. Mild to moderate atrophy and chronic microvascular ischemic changes. 4. No areas of hemodynamically significant stenosis, vascular occlusion or aneurysmal dilation within the anterior circulation. 5. No areas of hemodynamically significant stenosis, vascular occlusion or aneurysmal dilation within the posterior circulation. 6. No areas of hemodynamically significant stenosis, vascular occlusion or aneurysmal dilation within the neck vasculature. Origin of the right vertebral artery is unable to be assessed for stenosis secondary to motion. 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 Guillaume is a 76-year-old female with past medical history of hypertension and hyperlipidemia, admitted for CVA/TIA rule out Possible transient ischemic attack. Not present on admission. Under evaluation ABCD score for TIA gives Pt a 3.1% risk for CVA in next 90 days Lipid panel shows mixed hyperlipidemia CT as above MR stroke protocol ordered and pending which this subacute event but no significant carotid stenoses. See result as noted above. Given these findings will add Plavix to ASA 81 mg by mouth daily. Patient was taking daily aspirin. Echo ordered and pending Telemetry Continue to monitor Hyperlipidemia. POA. Ongoing Initiate atorvastatin 40 mg at at bedtime Hypertension. POA. Ongoing Continue home lisinopril Patient status: Patient admitted under observational status GI Prophylaxis: H2 annie VTE Prophylaxis: Sub-Q Heparin (Unfractionated) VTE Mechanical Devices: Intermittant Pneumatic CD Resuscitation Status: CPR: Attempt Resuscitation Time spent 30 minutes Bibi Blank MD Dec 11, 2016 13:13
--- NOTE | 2016-12-11 13:57 | DRSVH ---
[facility] [address] [place] [address] Echocardiogram Report Name: IRIS MORALES IStudy Date: 12/11/2016 Height: 66 in Hospital Exam Location: [facility] Weight: 184 lb Gender: Female BSA: 1.9 m2 : 1940 Age: 76 yrs BP: 116/ 68 mmHg Reason For Study: TIA Ordering Physician: [facility] Performed By: Nitza Buchanan Referring Physician: Hany Gómez Interpretation Summary There is mild concentric left ventricular hypertrophy. The left ventricular ejection fraction is normal. The ejection fraction is estimated to be 65-70%. There are no focal wall motion abnormalities. Assessment of diastolic parameters indicates a relaxation abnormality of the left ventricle, consistent with normal filling pressures. The right ventricle is normal in size, thickness and function. The right ventricular systolic pressure is estimated at least 35 mmHg assuming a right atrial pressure of 15 mm Hg. The left atrial size is normal. Right atrial size is normal. There is no Doppler evidence for an interatrial shunt. There is no significant valvular heart disease. The aortic root is mildly dilated. The aortic arch is normal in size. Moderate atherosclerotic plaque(s) in the aortic arch. Procedure: A two-dimensional transthoracic echocardiogram with color flow and Doppler was performed. The study quality was technically adequate. There is no prior echocardiogram noted for this patient. The patient was in normal sinus rhythm during the exam. Left Ventricle: The left ventricle is normal in size. There is mild concentric left ventricular hypertrophy. The left ventricular ejection fraction is normal. The ejection fraction is estimated to be 65-70%. There are no focal wall motion abnormalities. Assessment of diastolic parameters indicates a relaxation abnormality of the left ventricle, consistent with normal filling pressures. Right Ventricle: The right ventricle is normal in size, thickness and function. Atria: The left atrial size is normal. Right atrial size is normal. There is no Doppler evidence for an interatrial shunt. Mitral Valve: The mitral valve leaflets appear thickened, but open well. The mitral valve leaflets appear to open well. There is mild mitral annular calcification. There is trace mitral regurgitation. Aortic Valve: The aortic valve is normal in structure and function. No aortic regurgitation is present. Tricuspid Valve: The tricuspid valve is normal. There is trace tricuspid regurgitation. The right ventricular systolic pressure is estimated at least 35 mmHg assuming a right atrial pressure of 15 mm Hg. Pulmonic Valve: The pulmonic valve leaflets are thin and pliable; valve motion is normal. There is mild pulmonic regurgitation. There is no significant valvular heart disease. Great Vessels: The aortic root is mildly dilated. The ascending aorta is normal in size. The aortic arch is normal in size. Moderate atherosclerotic plaque(s) in the aortic arch. The pulmonary is not well visualized. The IVC is dilated (diameter is greater than 2.1 cm) and it collapses less than 50% with a sniff. This suggests a high right atrial pressure of 15 mm Hg. Pericardium/ Pleura There is no pericardial effusion. There is no pleural effusion. MMode/2D Measurements & Calculations LVIDd: 4.4 cm RA long axis LVOT diam: 1.8 cm LVIDs: 2.0 cm LA A2 area: 15.6 cm AoV Opening FS: 55.2 % LA A4 area: 15.4 cm RA area EPSS: 0.29 cm LA length (vol) Ao root diam IVSd: 1.1 cm : 17.2 cm LVPWd: 1.1 cm LA vol: 39.3 ml RA vol asc Aorta Diam LA vol index : 50.5 ml RA Ao Arch Diam (Prox : 26.1 mm2 Trans): 2.5 cm IVC diam: 2.1 cm LV bustillo. diameter/BSA LV sys. diameter/BSA RVD1 (basal) RVD2 (mid): 2.2 cm (cm/m^2): 2.3 (cm/m^2): 1.0 Doppler Measurements & Calculations Ao V2 max MV E max juan m MV E/A: 0.81 TR max juan m : 136.7 cm/sec : 104.4 cm/sec Med Peak E' Juan M : 224.5 cm/sec Ao max PG MV A max juan m TR max PG : 7.5 mmHg : 128.5 cm/sec E/E' med: 17.7 : 20.2 mmHg Ao mean PG MV P1/2t: 93.9 msec Lat Peak E' Juan M PA V2 max : 67.8 cm/sec LVOT Max Juan M MVA(VTI): 2.3 cm2 E/E' lat: 19.1 PA mean PG : 123.9 cm/sec E/e' average : 0.94 mmHg BAYLEE(I,D): 2.3 cm sev ratio MV V2 mean MV P1/2t max juan m Ao V2 mean LV V1 max PG : 70.4 cm/sec : 105.8 cm/sec MV mean PG MVA(P1/2t): 2.3 cm2 Ao V2 VTI: 30.0 cmLV V1 VTI BAYLEE(V,D): 2.3 cm2 : 27.6 cm MV V2 VTI: 30.1 cm MV dec time : 0.32 sec PA V2 mean BAYLEE indexed to BSA : 45.3 cm/sec (cm^2/m^2): 1.2 PA pr(Accel) : 44.7 mmHg Reading Physician:KELLEE
[2016-12-11 14:45] VITALS: BP 118/70; PULSE 75; RESP 18; O2SAT 96
--- NOTE | 2016-12-11 14:59 | NUR ---
Evaluation completed. Please go to "Notes" then click on "Assessments and Notes" (bottom left corner of screen). Then select appropriate discipline tab on top of screen.
--- NOTE | 2016-12-11 15:22 | PCM.DIMED ---
Discharge Instructions Date of Service Dec 11, 2016 Dates of Hospitalization Dec 10, 2016 at 19:59 Discharge Diagnosis Discharge Diagnosis CVA with left arm dysmetria Test Results Test Results PROCEDURE: MRI STROKE PROTOCOL ([id number]) Pre- and post-contrast brain MRI, non-contrast brain MR angiogram, pre- and postcontrast neck MR angiogram INDICATIONS: TIA TECHNIQUE: Brain: Noncontrast axial T1 spin echo, axial T2 fast spin echo, sagittal and axial FLAIR, coronal T2 fast spin echo, axial gradient echo, axial diffusion and ADC through the brain. After the administration of contrast, axial 3D VIBE of the cranial vasculature and brain. Brain MRA: Non-contrast 3-D time of flight MR angiogram, with multiple maximum- intensity-projection (MIP) reformats performed. Neck MRA: Axial and sagittal TruFISP through the neck. Coronal dynamic MR angiogram during administration of contrast in the arterial and venous phases, with 3-dimenstional vkshfcd-ipgmrtbnp-awlvcyldms (MIP) reformats constructed from subtraction images. COMPARISON: [facility], CT, CT BRAIN TPA, 12/10/2016, 17:45. FINDINGS: Image quality: Excellent. BRAIN: The ventricular system and cortical sulci demonstrate atrophy, consistent for the patient's stated age. There are areas of increased T2/FLAIR signal intensity within the periventricular and subcortical white matter. There is no acute intra-or extra axial fluid collection. No acute hemorrhage, mass lesion or midline shift. Brainstem is unremarkable. Restricted diffusion is present in the posterior right frontal lobe. In addition , a punctate focus of restricted diffusion is present in the right occipital lobe. T2/FLAIR signal intensity. In addition, there is a very faint area of increased signal on diffusion sequence in the anterior left frontal lobe. There is an equivocal appearance of hypointensity on ADC and hyperintense signal on T2 /FLAIR sequences. In addition, post contrast enhancement is present. Globes are symmetrical. Sinuses are aerated. Osseous structures are intact. BRAIN MR ANGIOGRAM: The posterior circulation demonstrates a left vertebral artery dominance. Basilar artery and posterior cerebral arteries demonstrate no areas of hemodynamically significant stenosis, vascular occlusion or aneurysmal dilation. Posterior communicating arteries are within normal limits. 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 The anterior circulation, including the anterior and middle cerebral arteries, as well as internal carotid arteries demonstrates no areas of hemodynamically significant stenosis, vascular occlusion or aneurysmal dilation. NECK MR ANGIOGRAM: The origins of the left and right common, internal and external carotid arteries demonstrate no areas of hemodynamically significant stenosis, vascular occlusion or aneurysmal dilation. Origin of the right vertebral artery is obscured secondary to motion. The origin of the left vertebral artery demonstrates no areas of hemodynamically significant stenosis, vascular occlusion or aneurysmal dilation. Aortic arch demonstrates conventional anatomy. Limited, visualized portions subclavian vasculature are unremarkable. IMPRESSION: 1. Restricted diffusion with relative signal on ADC, T2 and FLAIR sequence is consistent with acute/subacute ischemia in the right frontal and right occipital lobes. No superimposed hemorrhage. 2. Faint area of focal true restricted diffusion and contrast enhancement within the left frontal lobe as above. Overall appearance is most suggestive of late subacute ischemia. 3. Mild to moderate atrophy and chronic microvascular ischemic changes. 4. No areas of hemodynamically significant stenosis, vascular occlusion or aneurysmal dilation within the anterior circulation. 5. No areas of hemodynamically significant stenosis, vascular occlusion or aneurysmal dilation within the posterior circulation. 6. No areas of hemodynamically significant stenosis, vascular occlusion or aneurysmal dilation within the neck vasculature. Origin of the right vertebral artery is unable to be assessed for stenosis secondary to motion. The estimate of stenosis included in the report of the imaging study was calculated using the NASCET method Dictated by: Taisha England M.D. on 12/11/2016 at 9:14 Approved by: Taisha England M.D. on 12/11/2016 at 11:47 PROCEDURE: CT BRAIN TPA INDICATIONS: Stroke TECHNIQUE: Noncontrast 4.5 mm thick angled axial sections acquired from the foramen magnum to the vertex, with coronal reformats. COMPARISON: None. FINDINGS: Image quality: Excellent. CSF spaces: Basal cisterns are patent. No extra-axial fluid collections. The ventricles are symmetric in size and shape. Brain: No intracranial bleeds or masses. There is marked cerebral volume loss for age, with resultant ventricular and sulcal prominence. There are extensive periventricular and deep white matter chronic small vessel ischemic changes. There is intracranial internal carotid artery atherosclerosis. Skull and face: Calvarium and visualized facial bones appear intact, without suspicious lesions. Sinuses: Visualized sinuses and mastoids are clear. IMPRESSION: 1. No acute intracranial findings. 2. Extensive findings likely associated with chronic microvascular ischemic changes. This study fulfills neurological imaging criteria for inclusion or exclusion of acute stroke therapies based on available published neurological guidelines. Dictated by: Inge Escobar M.D. on 12/10/2016 at 17:51 Approved by: Inge Escobar M.D. on 12/10/2016 at 17:54 Diet Discharge Diet: Heart Healthy Activity Discharge Activity: Other (progresses tolerate) Call your provider Call your provider for: Fever or Chills, Shortness of breath, Bleeding, Chest pain, Vomitting, Excessive diarrhea, Weakness (unilateral) Patient Instructions Follow-up Provider: Kathrine Raman Follow-up with PCP in: Other (4-5 days sooner if problems) Bibi Blank MD Dec 11, 2016 15:22
[2016-12-11] MEDS ORDERED: LIP40 PO (15:24)
[2016-12-11] MEDS ORDERED: CLOP75TA28 PO (15:24)
--- NOTE | 2016-12-11 15:27 | PCM.DC.MED ---
Discharge Summary Date of Service Dec 11, 2016 Dates of Hospitalization Date of Hospital Admission Dec 10, 2016 at 19:59 Date of Discharge: Dec 11, 2016 Providers: Admitting Physician: Jovani Alexander MD Primary Care Physician: Kathrine Raman Attending Physician: Bibi Blank MD Diagnosis at Time of Discharge Diagnosis at Time of Discharge CVA with left arm dysmetria Procedures XRay, CTs & MRIs . CT BRAIN TPA IMPRESSION: 1. No acute intracranial findings. 2. Extensive findings likely associated with chronic microvascular ischemic changes. This study fulfills neurological imaging criteria for inclusion or exclusion of acute stroke therapies based on available published neurological guidelines. Dictated by: Inge Escobar M.D. on 12/10/2016 PROCEDURE: MRI STROKE PROTOCOL ([id number]) Pre- and post-contrast brain MRI, non-contrast brain MR angiogram, pre- and postcontrast neck MR angiogram INDICATIONS: TIA TECHNIQUE: Brain: Noncontrast axial T1 spin echo, axial T2 fast spin echo, sagittal and axial FLAIR, coronal T2 fast spin echo, axial gradient echo, axial diffusion and ADC through the brain. After the administration of contrast, axial 3D VIBE of the cranial vasculature and brain. Brain MRA: Non-contrast 3-D time of flight MR angiogram, with multiple maximum- intensity-projection (MIP) reformats performed. Neck MRA: Axial and sagittal TruFISP through the neck. Coronal dynamic MR angiogram during administration of contrast in the arterial and venous phases, with 3-dimenstional yetkcar-jmruyuquh-blzcbmdsuv (MIP) reformats constructed from subtraction images. COMPARISON: [facility], CT, CT BRAIN TPA, 12/10/2016, 17:45. FINDINGS: Image quality: Excellent. BRAIN: The ventricular system and cortical sulci demonstrate atrophy, consistent for the patient's stated age. There are areas of increased T2/FLAIR signal intensity within the periventricular and subcortical white matter. There is no acute intra-or extra axial fluid collection. No acute hemorrhage, mass lesion or midline shift. Brainstem is unremarkable. Restricted diffusion is present in the posterior right frontal lobe. In addition , a punctate focus of restricted diffusion is present in the right occipital lobe. T2/FLAIR signal intensity. In addition, there is a very faint area of increased signal on diffusion sequence in the anterior left frontal lobe. There is an equivocal appearance of hypointensity on ADC and hyperintense signal on T2 /FLAIR sequences. In addition, post contrast enhancement is present. Globes are symmetrical. Sinuses are aerated. Osseous structures are intact. BRAIN MR ANGIOGRAM: The posterior circulation demonstrates a left vertebral artery dominance. Basilar artery and posterior cerebral arteries demonstrate no areas of hemodynamically significant stenosis, vascular occlusion or aneurysmal dilation. Posterior communicating arteries are within normal limits. 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 The anterior circulation, including the anterior and middle cerebral arteries, as well as internal carotid arteries demonstrates no areas of hemodynamically significant stenosis, vascular occlusion or aneurysmal dilation. NECK MR ANGIOGRAM: The origins of the left and right common, internal and external carotid arteries demonstrate no areas of hemodynamically significant stenosis, vascular occlusion or aneurysmal dilation. Origin of the right vertebral artery is obscured secondary to motion. The origin of the left vertebral artery demonstrates no areas of hemodynamically significant stenosis, vascular occlusion or aneurysmal dilation. Aortic arch demonstrates conventional anatomy. Limited, visualized portions subclavian vasculature are unremarkable. IMPRESSION: 1. Restricted diffusion with relative signal on ADC, T2 and FLAIR sequence is consistent with acute/subacute ischemia in the right frontal and right occipital lobes. No superimposed hemorrhage. 2. Faint area of focal true restricted diffusion and contrast enhancement within the left frontal lobe as above. Overall appearance is most suggestive of late subacute ischemia. 3. Mild to moderate atrophy and chronic microvascular ischemic changes. 4. No areas of hemodynamically significant stenosis, vascular occlusion or aneurysmal dilation within the anterior circulation. 5. No areas of hemodynamically significant stenosis, vascular occlusion or aneurysmal dilation within the posterior circulation. 6. No areas of hemodynamically significant stenosis, vascular occlusion or aneurysmal dilation within the neck vasculature. Origin of the right vertebral artery is unable to be assessed for stenosis secondary to motion. The estimate of stenosis included in the report of the imaging study was calculated using the NASCET method ECG 12 Lead EKG showed sinus rhythm, LVH with IVCD, LAD and secondary repolarization abnormalities Cardiac Echo Impression Echocardiogram Report Name: IRIS MORALES IStudy Date: 12/11/2016 Height: 66 in Hospital Exam Location: [facility] Weight: 184 lb Gender: Female BSA: 1.9 m2 : 1940 Age: 76 yrs BP: 116/ 68 mmHg Reason For Study: TIA Ordering Physician: HOSPITALIST [facility] Performed By: Nitza Buchanan Referring Physician: Hany Gómez Interpretation Summary There is mild concentric left ventricular hypertrophy. The left ventricular ejection fraction is normal. The ejection fraction is estimated to be 65-70%. There are no focal wall motion abnormalities. Assessment of diastolic parameters indicates a relaxation abnormality of the left ventricle, consistent with normal filling pressures. The right ventricle is normal in size, thickness and function. The right ventricular systolic pressure is estimated at least 35 mmHg assuming a right atrial pressure of 15 mm Hg. The left atrial size is normal. Right atrial size is normal. There is no Doppler evidence for an interatrial shunt. There is no significant valvular heart disease. The aortic root is mildly dilated. The aortic arch is normal in size. Moderate atherosclerotic plaque(s) in the aortic arch. 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 Morales is a 76-year-old female with past medical history of hypertension and hyperlipidemia who presented to the ED from home with strokelike symptoms onset 1600 hrs. today. Patient states that she was getting out of her vehicle today when she felt a left shoulder left arm weakness/numbness with a "out of body" feeling. She states as if she was not in control of her arm while able to control her movements. She does not state any other symptoms such as facial numbness, slurred speech, lower extremity numbness or tingling. She states 10 days prior she had a similar episode while walking her dog when she felt as if her left arm was not in her control. Admittedly she has a difficult time describing these feelings "like somebody is touching my face when I am touching my face as if my hand belongs to someone else". She states 5 years prior she underwent a right ankle surgery which she believes has caused her musculoskeletal dysfunction and believes her current symptoms may be due to a pinched nerve in her neck. During interview patient is asymptomatic and denies headache, visual disturbances, nausea vomiting, chest pain, shortness breath, abdominal pain, numbness tingling in extremities or weakness in the extremity. In the ED brain CT showed no acute intracranial findings, extensive findings likely associated with chronic microvascular ischemic changes. Patient admitted for TIA versus stroke rule out Hospital Course Ms. Morales is a 76-year-old female with past medical history of hypertension and hyperlipidemia, admitted for CVA/TIA rule out Possible transient ischemic attack. Not present on admission. Under evaluation ABCD score for TIA gives Pt a 3.1% risk for CVA in next 90 days Lipid panel shows mixed hyperlipidemia CT as above MR stroke protocol ordered and pending which this subacute event but no significant carotid stenoses. See result as noted above. Given these findings will add Plavix to ASA 81 mg by mouth daily. Patient was taking daily aspirin. Echo ordered and pending Telemetry Continue to monitor Hyperlipidemia. POA. Ongoing Initiate atorvastatin 40 mg at at bedtime Hypertension. POA. Ongoing Continue home lisinopril Patient status: Patient admitted under observational status Exam Vital Signs (Last) Date Time Temp Pulse Resp B/P Pulse Ox O2 Delivery O2 Flow Rate FiO2 12/11/16 14:45 36.6 75 18 118/70 96 Room Air Exam See progress note for today Test 12/10/16 17:56 12/10/16 18:06 12/10/16 18:07 12/11/16 06:00 Urine Color Yellow (YELLOW) Urine Appearance Clear (CLEAR,HAZY) Urine pH 6.0 (5.0-8.0) Urine Specific Wickes 1.010 (1.003-1.035) Urine Protein Negativemg/dL (NEG,TRACE) Urine Glucose (UA) Negativemg/dL (NEGATIVE) Urine Ketones Negativemg/dL (NEGATIVE) Urine Occult Blood Trace (NEGATIVE) Urine Nitrite Negative (NEGATIVE) Urine Bilirubin Negative (NEGATIVE) Urine Urobilinogen Normalmg/dL (NORMAL) Urine Leukocyte Esterase Trace (NEGATIVE) Urine RBC 3-10/hpf (0-2) Urine WBC 0-5/hpf (0-5) Urine Epithelial Cells Moderate/hpf (NONE-MOD) Urine Crystals None seen (NONE SEEN) Urine Bacteria Few/hpf (NONE-FEW) Urine Hyaline Casts None/lpf (NONE) Urine Granular Casts None seen (NONE SEEN) Urine Waxy Casts None seen (NONE SEEN) Urine Red Blood Cell Casts None seen (NONE SEEN) Urine White Blood Cell Casts None seen (NONE SEEN) Urine Mucus None seen (None Seen) Urine Trichomonas None seen (NONE SEEN) Urine Yeast None (NONE SEEN) Urinalysis Comment None Urine Culture Reflexed Indicated Prothrombin Time 10.0sec (8.1-12.5) Prothromb Time International Ratio 0.94ratio Activated Partial Thromboplast Time 28.9sec (22.8-33.0) Hemoglobin A1c 5.5% (4.8-5.6) Troponin T < 0.010ug/L (0.0-0.011) Triglycerides Level 214mg/dL (0-149) Cholesterol Level 208mg/dL (100-199) LDL Cholesterol, Calculated 117.200mg/dL (0-99) VLDL Cholesterol 42.800mg/dL HDL Cholesterol 48mg/dL (>39) Cholesterol/HDL Ratio 4.33 (0.0-4.4) Thyroid Stimulating Hormone (TSH) 4.000uIU/mL (0.450-4.500) Hold Martínez Top Tube Received (Received) White Blood Count 5.7th/mm3 (3.8-10.1) Red Blood Count 3.29mil/mm3 (3.90-5.20) Hemoglobin 10.4g/dL (12.0-15.6) Hematocrit 30.4% (35.0-46.0) Mean Corpuscular Volume 92.4fL (81-100) Mean Corpuscular Hemoglobin 31.6pg (27.0-35.0) Mean Corpuscular Hemoglobin Concent 34.2% (32.0-37.0) Red Cell Distribution Width 13.7% (12.3-15.4) Platelet Count 51bil/L (150-400) Neutrophils (%) (Auto) 45.9% (40-74) Lymphocytes (%) (Auto) 40.6% (14-46) Monocytes (%) (Auto) 10.8% (4-12) Eosinophils (%) (Auto) 2.3% (0-5) Basophils (%) (Auto) 0.2% (0-3) Sodium Level 141mEq/L (134-144) Potassium Level 3.4mEq/L (3.5-5.2) Chloride Level 105mEq/L (97-108) Carbon Dioxide Level 22mmol/L (18-29) Blood Urea Nitrogen 20mg/dL (8-27) Creatinine 0.76mg/dL (0.57-1.00) Estimat Glomerular Filtration Rate 105mL/min (>59) Glucose Level 94mg/dL (60-99) Calcium Level 8.4mg/dL (8.5-10.1) Total Bilirubin 0.7mg/dL (0.0-1.2) Aspartate Amino Transf (AST/SGOT) 25U/L (0-50) Alanine Aminotransferase (ALT/SGPT) 18U/L (0-32) Alkaline Phosphatase 57U/L (25-165) Total Protein 6.1g/dL (6.4-8.4) Albumin 3.4g/dL (3.4-5.0) Discharge Medications Discharge Medications Aspirin (Aspirin) 81 Mg Tablet 81 MG PO DAILY (Reported) Atorvastatin (Lipitor) 40 Mg Tablet 40 MG PO DAILY Prescribed by: BIBI BLANK MD Cholecalciferol (Vitamin D3) (Vitamin D3) 2,000 Unit Tablet 2,000 UNIT PO DAILY (Reported) Clopidogrel (Clopidogrel) 75 Mg Tablet 75 MG PO DAILY Prescribed by: BIBI BLANK MD Lisinopril (Lisinopril) 20 Mg Tablet 20 MG PO QAM (Reported) Lutein/Zeaxanthin (Lutein-Zeaxanthin 25-5 mg Sfgl) 1 Each Capsule 1 EACH PO DAILY (Reported) Multivitamin (Once Daily) 1 Each Tablet 1 EACH PO DAILY (Reported) Followup Plan Disposition: Home Discharge Diet: Heart Healthy Discharge Activity: Other (progresses tolerate) Follow-up Provider: Kathrine Raman Follow-up with PCP in: Other (4-5 days sooner if problems) Time spent 45 minutes copies to: Kathrine Raman Cheryl A MD Sep 13, 2017 15:27
--- NOTE | 2016-12-11 16:27 | NUR ---
Social Work- Discharge Data: EMR reviewed. Pt is on day 1 of hospitalization under observation. Discharge orders are active for pt at this time. All therapies have cleared pt as appropriate for discharge. Pt to d/c home with to transport via POV. No discharge needs identified at this time. Assessment: Pt who is independent at baseline, will likely pursue outpt PT Plan: Pt to discharge home with to transport via POV. No discharge needs identified at this time. Deb Balderas MSW
--- NOTE | 2016-12-11 18:48 | NUR ---
Discharge Pt discharged to home with family at 1700. A&Ox3, OLEARY, VSS, No pain, IV dcd intact, Tele dc'd, Hard copy script provided to pt and faxed to pt preferred pharmacy, CareNotes and instructions provided on dc dx and s/sx to seek medical attention for. No questions/concerns left unanswered at time of dc. Pt walked off unit with all personal belongings in hand.
== END 2016-12-11 17:00 | disposition home or self-care (01) ==
LOC: SED 17:21 → OSC 19:59 → INTOOBSV 19:59
PROVIDERS: ADMIT Hospitalist; ATTEND Specialist
DX: I63.9 Cerebral infarction, unspecified (principal); R27.8 Other lack of coordination; R53.1 Weakness; R20.0 Anesthesia of skin; I10 Essential (primary) hypertension; E78.5 Hyperlipidemia, unspecified; Z79.82 Long term (current) use of aspirin; Z79.899 Other long term (current) drug therapy
CPT/HCPCS: 36415; 70450; 70549; 70553; 80053; 80061; 81000; 83036; 84443; 84484; 85025; 85610; 85730; 87086; 92610; 93005; 97162; 97167; 99285; A9585; C8929; G0378